=== PATIENT | female | born 1935 | race Caucasian/White ===

== ENCOUNTER → 2016-08-18 | Outpatient (CLI) | payer MEDICARE ==
[2016-08-18 16:24] LABS: BASOPHILS % (AUTO) 1 % (0-2); EOSINOPHILS # (AUTO) 0.1 10^3uL; EOSINOPHILS % (AUTO) 2 % (0-4); LYMPHOCYTES # (AUTO) 1.7 X10^3; MEAN CORPUSCULAR HGB CONC 33.1 g/dL (31.0-37.0); MEAN PLATELET VOLUME 11.7 FL (6.0-9.5); MONOCYTES # (AUTO) 0.6 X10^3; MONOCYTES % (AUTO) 10 % (3-11); NEUTROPHILS # (AUTO) 3.4 X10^3; NEUTROPHILS % (AUTO) 58 % (51-67); PLATELET COUNT 210 10^3uL (150-450); WHITE BLOOD COUNT 5.84 10^3uL (4.0-11.0)
[2016-08-18 16:42] LABS: MEAN CORPUSCULAR HEMOGLOBIN 33.6 PG (26.0-34.0); MEAN CORPUSCULAR VOLUME 101 FL (80-100)
[2016-08-18 16:52] LABS: ANION GAP 17.9 MEQ/L (3-15); MAGNESIUM* 1.8 mg/dL (1.6-2.3)
== END ==
LOC: LAB 16:01
PROVIDERS: ATTEND Family Medicine
DX: Z95.3 Presence of xenogenic heart valve (principal); I27.2 Other secondary pulmonary hypertension; I34.0 Nonrheumatic mitral (valve) insufficiency; I87.2 Venous insufficiency (chronic) (peripheral)
CPT/HCPCS: 36415; 80048; 83735; 85025

== ENCOUNTER → 2016-12-20 | Outpatient (REF) | payer MEDICARE ==
[2016-12-20 12:15] LABS: BASOPHILS % (AUTO) 0 % (0-2); EOSINOPHILS # (AUTO) 0.1 10^3uL; EOSINOPHILS % (AUTO) 2 % (0-4); LYMPHOCYTES # (AUTO) 0.7 X10^3; MEAN CORPUSCULAR HGB CONC 32.9 g/dL (31.0-37.0); MONOCYTES # (AUTO) 0.4 X10^3; MONOCYTES % (AUTO) 8 % (3-11); NEUTROPHILS # (AUTO) 3.4 X10^3; NEUTROPHILS % (AUTO) 74 % (51-67); PLATELET COUNT 185 10^3uL (150-450); WHITE BLOOD COUNT 4.57 10^3uL (4.0-11.0)
[2016-12-20 12:23] LABS: MEAN CORPUSCULAR HEMOGLOBIN 33.7 PG (26.0-34.0); MEAN CORPUSCULAR VOLUME 103 FL (80-100)
== END ==
LOC: LAB 11:50
PROVIDERS: ATTEND Nurse Practitioner Family
DX: D64.89 Other specified anemias (principal); M79.674 Pain in right toe(s)
CPT/HCPCS: 82607; 82746; 84550; 85025